=== PATIENT | female | born 1975 | race Caucasian/White ===

== ENCOUNTER 2016-05-01 13:20 | Emergency (ER) | payer SELFPAY ==
[~2016-05-01 13:20] MED LIST: CEPHALEXIN500 M1 PO; METOPROLOL SUC100 M1 PO
[2016-05-01] MEDS ORDERED: CEPHALEXIN500 M1 PO (14:21)
[2016-05-01] MEDS ORDERED: BACTRIM DS 8001 TA1 PO (14:21)
[2016-05-01] MEDS ORDERED: NAPROSYN500 MG PO (14:21)
[2016-05-01] MEDS ORDERED: ZYRTEC10 MG PO (14:21)
== END 2016-05-01 14:42 | disposition home or self-care (01) ==
LOC: ED 13:20
DX: L03.211 Cellulitis of face (principal)

== ENCOUNTER → 2017-10-02 | Outpatient (CLI) | payer OTHER ==
[~2017-10-02] MED LIST changes: +BACTRIM DS 8001 TA1 PO; +NAPROSYN500 MG PO; +ZYRTEC10 MG PO
[2017-10-02 09:23] LABS: BILIRUBIN NEGATIVE (NEGATIVE); BLOOD TRACE-LYSED (NEGATIVE); CLARITY SL CLOUDY (CLEAR); COLOR YELLOW (YELLOW); GLUCOSE NEGATIVE (NEGATIVE); KETONE NEGATIVE (NEGATIVE); LEUKO ESTERASE NEGATIVE (NEGATIVE); NITRITE NEGATIVE (NEGATIVE); SPECIFIC GRAVITY 1.025 (1.005-1.030); UROBILINOGEN 0.2 E.U./dl (0.2-1.0)
[2017-10-02 09:37] LABS: BACTERIA 1+; EPITHELIAL CELLS 16-20
== END | disposition home or self-care (01) ==
LOC: LAB 08:50
PROVIDERS: Registered Nurse
DX: R30.0 Dysuria (principal); R35.0 Frequency of micturition

== ENCOUNTER → 2018-08-14 | Outpatient (CLI) | payer OTHER | END | disposition home or self-care (01) | LOC: RESCLI 10:38 | DX: J18.1 Lobar pneumonia, unspecified organism (principal); I10 Essential (primary) hypertension; H66.002 Acute suppurative otitis media without spontaneous rupture of ear drum, left ear; Z79.899 Other long term (current) drug therapy; Z88.8 Allergy status to other drugs, medicaments and biological substances; Z90.49 Acquired absence of other specified parts of digestive tract ==

== ENCOUNTER → 2018-08-20 | Outpatient (CLI) | payer OTHER | END | disposition home or self-care (01) | LOC: RESCLI 12:55 | DX: J18.1 Lobar pneumonia, unspecified organism (principal); H66.002 Acute suppurative otitis media without spontaneous rupture of ear drum, left ear; I10 Essential (primary) hypertension; J01.00 Acute maxillary sinusitis, unspecified ==

== ENCOUNTER → 2018-09-11 | Outpatient (CLI) | payer OTHER ==
[2018-09-11 11:37] LABS: BASO % 0.4 % (0.0-1.0); EOS # 0.1 10*3/uL (0.0-0.4); EOS % 1.7 % (1.0-4.0); HEMATOCRIT 38.5 % (37.0-47.0); HEMOGLOBIN 13.4 g/dl (12.0-16.0); LYMPH % 24.5 % (27.0-41.0); MEAN CELL VOLUME 97.7 fl (81.0-99.0); MEAN CORPUSCULAR HGB CONC 34.8 g/dl (33.0-37.0); MEAN PLATELET VOLUME 9.8 fl (9.6-12.3); MONO # 0.6 10*3/uL (0.1-1.0); MONO % 7.2 % (3.0-9.0); NEUT # 5.4 10*3/uL (2.3-7.9); NEUT % 65.7 % (47.0-73.0); PLATELET COUNT AUTOMATED 207 10*3/uL (130-400); RED BLOOD COUNT 3.94 10*6/uL (4.10-5.10); RED CELL DISTRI WIDTH 11.7 % (0-14.5); WHITE BLOOD COUNT 8.2 10*3/uL (4.8-10.8)
[2018-09-11 11:54] LABS: BUN 20 mg/dl (7-24); CHLORIDE 106 mmol/L (98-107); CREATININE 0.82 mg/dL (0.55-1.02); SODIUM 140 mmol/L (136-145)
== END | disposition home or self-care (01) ==
LOC: LAB 09:44
PROVIDERS: Registered Nurse
DX: R06.02 Shortness of breath (principal); R53.83 Other fatigue; R07.9 Chest pain, unspecified

== ENCOUNTER → 2019-04-04 | Outpatient (CLI) | payer OTHER | END | disposition home or self-care (01) | LOC: RAD 13:49 | DX: R05 Cough (principal) ==

== ENCOUNTER → 2019-10-21 | Outpatient (CLI) | payer OTHER ==
[~2019-10-21] MED LIST changes: +Motrin,Rufen800 MG PO; +NORCO 5-325 TA1 EACH PO
== END | disposition home or self-care (01) ==
LOC: LAB 12:12
DX: Z30.2 Encounter for sterilization (principal)

== ENCOUNTER → 2019-10-22 | Outpatient (CLI) | payer OTHER | END | disposition home or self-care (01) | LOC: COVID19 08:10 | DX: Z01.818 Encounter for other preprocedural examination (principal); Z11.59 Encounter for screening for other viral diseases ==

== ENCOUNTER → 2019-10-29 | Day surgery (SDC) | payer OTHER ==
[2019-10-21 14:59] VITALS: BP 132/78
[~2019-10-29] VITALS: Ht 154.9 cm; Wt 62.6 kg
[2019-10-29 06:30] VITALS: BP 121/67
[2019-10-29 08:35] VITALS: BP 124/70
[2019-10-29 08:50] VITALS: BP 109/58
[2019-10-29 09:05] VITALS: BP 100/55
[2019-10-29 09:20] VITALS: BP 92/54
[2019-10-29 09:35] VITALS: BP 92/56
== END | disposition home or self-care (01) ==
LOC: SDC 08-20 13:15
DX: Z30.2 Encounter for sterilization (principal); I10 Essential (primary) hypertension; Z98.890 Other specified postprocedural states; Z79.899 Other long term (current) drug therapy

== ENCOUNTER → 2021-08-03 | Outpatient (CLI) | payer OTHER ==
[2021-08-03 12:34] LABS: BASO % 0.3 % (0.0-1.0); EOS % 0.6 % (1.0-4.0); HEMATOCRIT 38.9 % (37.0-47.0); LYMPH # 1.9 10*3/uL (1.3-4.4); LYMPH % 26.9 % (27.0-41.0); MEAN CELL VOLUME 95.3 fl (81.0-99.0); MEAN CORPUSCULAR HGB 33.6 pg (27.0-31.0); MEAN CORPUSCULAR HGB CONC 35.2 g/dl (33.0-37.0); MEAN PLATELET VOLUME 9.8 fl (9.6-12.3); MONO # 0.4 10*3/uL (0.1-1.0); MONO % 6.3 % (3.0-9.0); NEUT # 4.6 10*3/uL (2.3-7.9); NEUT % 65.6 % (47.0-73.0); PLATELET COUNT AUTOMATED 202 10*3/uL (130-400); RED BLOOD COUNT 4.08 10*6/uL (4.10-5.10); RED CELL DISTRI WIDTH 11.8 % (0-14.5)
[2021-08-03 13:18] LABS: ALKALINE PHOSPHATASE 53 U/L (45-117); BUN 17 mg/dl (7-24); CHLORIDE 107 mmol/L (98-107); CHOLESTEROL 252 mg/dL (<200); CREATININE 0.73 mg/dL (0.55-1.02); LDL CHOLESTEROL 154 mg/dL (9-159); SGOT/AST 15 IU/L (3-35); SGPT/ALT 20 U/L (12-78); SODIUM 136 mmol/L (136-145); TOTAL PROTEIN 7.4 gm/dL (6.4-8.2); TRIGLYCERIDES 242 mg/dl (<150)
== END | disposition home or self-care (01) ==
LOC: LAB 08-02 10:18
PROVIDERS: ATTEND Internal Medicine
DX: Z00.00 Encounter for general adult medical examination without abnormal findings (principal); I10 Essential (primary) hypertension; E78.5 Hyperlipidemia, unspecified

== ENCOUNTER → 2023-01-13 | Outpatient (CLI) | payer OTHER ==
[2023-01-13 11:47] LABS: BASO % 0.5 % (0.0-1.0); EOS # 0.1 10*3/uL (0.0-0.4); EOS % 0.6 % (1.0-4.0); HEMATOCRIT 40.2 % (37.0-47.0); LYMPH # 2.2 10*3/uL (1.3-4.4); MEAN CELL VOLUME 96.2 fl (81.0-99.0); MEAN CORPUSCULAR HGB 34.2 pg (27.0-31.0); MEAN CORPUSCULAR HGB CONC 35.6 g/dl (33.0-37.0); MEAN PLATELET VOLUME 9.5 fl (9.6-12.3); MONO # 0.7 10*3/uL (0.1-1.0); MONO % 8.2 % (3.0-9.0); NEUT # 5.1 10*3/uL (2.3-7.9); NEUT % 63.5 % (47.0-73.0); PLATELET COUNT AUTOMATED 218 10*3/uL (130-400); RED BLOOD COUNT 4.18 10*6/uL (4.10-5.10); RED CELL DISTRI WIDTH 11.6 % (0-14.5); WHITE BLOOD COUNT 8.1 10*3/uL (4.8-10.8)
[2023-01-13 12:37] LABS: ALKALINE PHOSPHATASE 49 U/L (46-116); BUN 20 mg/dl (9-23); CHLORIDE 104 mmol/L (98-107); CHOLESTEROL 230 mg/dL (<200); LDL CHOLESTEROL 127 mg/dL (9-159); POTASSIUM 3.9 mmol/L (3.4-5.1); SGPT/ALT 12 U/L (10-49); TOTAL PROTEIN 7.3 gm/dL (6.0-8.0); TRIGLYCERIDES 103 mg/dl (<150)
== END | disposition home or self-care (01) ==
LOC: LAB 11:24
PROVIDERS: ATTEND Internal Medicine
DX: Z00.00 Encounter for general adult medical examination without abnormal findings (principal); F90.9 Attention-deficit hyperactivity disorder, unspecified type; E78.5 Hyperlipidemia, unspecified; I10 Essential (primary) hypertension

== ENCOUNTER → 2023-04-20 | Outpatient (CLI) | payer OTHER | END | disposition home or self-care (01) | LOC: MAMMO 00:51 | PROVIDERS: ATTEND Internal Medicine | DX: N63.0 Unspecified lump in unspecified breast (principal) ==